=== PATIENT | female | born 1985 | race Caucasian/White ===

== ENCOUNTER 2016-10-01 19:40 | Emergency (ER) | payer BC ==
[~2016-10-01] VITALS: Ht 170.2 cm; Wt 100.0 kg
[2016-10-01 19:47] VITALS: BP 137/85; TEMP 98.7
[2016-10-01] MEDS ORDERED: NUVARING VAG RING VG (19:50)
[2016-10-01] MEDS ORDERED: COMBIRESP IH (19:50)
[2016-10-01 21:11] LABS: PH 5 (5-8); SQUAMOUS EPITHELIAL 0-2 /hpf; URINE APPEARANCE Clear; URINE BACTERIA Rare /hpf; URINE BILIRUBIN Negative (NEGATIVE); URINE BLOOD 3+ (NEGATIVE); URINE COLOR Yellow; URINE GLUCOSE Negative (NEGATIVE); URINE KETONE Trace (NEGATIVE); URINE UROBILINOGEN Negative (NEGATIVE); URINE WBC 0-2 /hpf
[2016-10-01] MEDS ORDERED: ZOFRAN 4MG T4 MG/TAB PO (23:07)
[2016-10-01] MEDS ORDERED: NORCO 325 MG-51 TAB PO (23:07)
[2016-10-01 23:42] VITALS: PULSE 68
== END 2016-10-01 23:35 | disposition home or self-care (01) ==
LOC: COL.ER 19:40
PROVIDERS: Emergency Medicine
DX: N23 Unspecified renal colic (principal); R10.31 Right lower quadrant pain; Z87.442 Personal history of urinary calculi

== ENCOUNTER 2016-10-03 21:47 | Emergency (ER) | payer BC ==
[~2016-10-03] VITALS: Ht 170.2 cm; Wt 100.0 kg
[~2016-10-03 21:47] MED LIST: COMBIRESP IH; NORCO 325 MG-51 TAB PO; NUVARING VAG RING VG; ZOFRAN 4MG T4 MG/TAB PO
[2016-10-03 21:50] VITALS: TEMP 100.6
[2016-10-03 22:28] LABS: COLLECTION METHOD CLEAN CATCH
[2016-10-03 22:34] LABS: MUCOUS Present /lpf; PH 6 (5-8); SQUAMOUS EPITHELIAL 0-2 /hpf; URINE APPEARANCE Clear; URINE BACTERIA Rare /hpf; URINE BILIRUBIN Negative (NEGATIVE); URINE BLOOD 1+ (NEGATIVE); URINE COLOR Yellow; URINE GLUCOSE Negative (NEGATIVE); URINE KETONE Negative (NEGATIVE); URINE LEUKOCYTE ESTERASE Trace (NEGATIVE); URINE PROTEIN(semi-quant) Negative (NEGATIVE); URINE UROBILINOGEN Negative (NEGATIVE); URINE WBC 0-2 /hpf
[2016-10-03 23:06] LABS: BASO # 0.1 (0.0-0.2); BASO % 0.5 % (0.0-2.0); EOS # 0.1 (0.0-0.7); EOS % 0.5 % (0-4.0); GRAN # 8.1 (1.4-6.5); GRAN % 73.6 % (42.2-75.2); HEMATOCRIT 39.5 % (37.0-47.0); HEMOGLOBIN 13.4 g/dl (12.5-16.0); LYMPH # 1.9 (1.2-3.4); LYMPH % 17.4 % (20.0-51.0); MEAN CELL VOLUME 85 fl (80.0-100.0); MEAN CORPUSCULAR HEMOGLOBIN 29 pg (27.0-31.0); MEAN CORPUSCULAR HGB CONC 34 g/dl (33.0-37.0); MEAN PLATELET VOLUME 9.1 fl (7.4-10.4); MONO # 0.8 (0.1-0.6); MONO % 7.5 % (1.7-9.3); PLATELET COUNT 333 K/mm3 (130-400); RED BLOOD COUNT 4.66 M/mm3 (4.10-5.30)
[2016-10-03 23:24] LABS: ADJUSTED CALCIUM 9.1 mg/dL (8.4-10.2); BILIRUBIN,TOTAL 0.7 mg/dL (0.0-1.0); CALCIUM 9.1 mg/dL (8.4-10.2); CREATININE, serum 1.06 mg/dL (0.52-1.25); POTASSIUM 3.9 mmol/L (3.4-5.0); TOTAL PROTEIN 7.4 gm/dL (6.4-8.2)
[2016-10-04] MEDS ORDERED: CEFTIN500 MG PO (00:45)
[2016-10-04] MEDS ORDERED: FLOMAX 0.40.4 MG/CAP PO (00:45)
[2016-10-04] MEDS ORDERED: PERCOCET 325 MG1 TA2 PO (00:45)
[2016-10-04 00:54] VITALS: BP 131/77; PULSE 86
== END 2016-10-04 00:57 | disposition home or self-care (01) ==
LOC: COL.ER 21:47
PROVIDERS: Emergency Medicine
DX: N20.2 Calculus of kidney with calculus of ureter (principal); Z87.442 Personal history of urinary calculi; N28.89 Other specified disorders of kidney and ureter
CPT/HCPCS: J0696; J1885; J2765; J3010; J7030

== ENCOUNTER → 2016-10-19 | Outpatient (CLI) | payer BC ==
[~2016-10-19] MED LIST changes: +CEFTIN500 MG PO; +FLOMAX 0.40.4 MG/CAP PO; +PERCOCET 325 MG1 TA2 PO
== END ==
LOC: COL.PUL 11:01
DX: J45.20 Mild intermittent asthma, uncomplicated (principal)

== ENCOUNTER → 2018-04-27 | Outpatient (CLI) | payer BC | LOC: MC.RAD 07:30 | DX: R22.31 Localized swelling, mass and lump, right upper limb (principal) ==

== ENCOUNTER → 2020-03-12 | Outpatient (CLI) | payer BC | LOC: MC.RAD 02-28 11:00 | DX: R22.31 Localized swelling, mass and lump, right upper limb (principal) ==